=== PATIENT | female | born 1960 | race Caucasian/White ===

== ENCOUNTER → 2024-04-05 | Outpatient (CLI) | payer OTHER ==
[~2024-04-05] MED LIST: ALBU2.5V5; ALPR1 PO; BACL10; BISA5EC PO; CYCL10; CYCL10 PO; DIAZ5 PO; ESCI20 PO; FAMO40; FLUT.05NI; GABA400 PO; GABA600 PO; HYDACE10B PO; HYOMAX; LEVSOD50 PO; LIDO5TP TOP; LISI20; MAXALT PO; NAPR500 PO; NORT25 PO; OXYB5; OXYC15ER PO; OXYC5 PO; RIZA10MLT MM; VITAMIN D; vicodin PO
[2024-04-05 19:44] LABS: Candida Group, PCR NOT DETECTED (NOT DETECT); Candida glabrata-krusei, PCR NOT DETECTED (NOT DETECT)
[2024-04-05 19:47] LABS: Bacterial Vaginosis PCR Positive (NEGATIVE)
== END ==
LOC: LAB SHORT 16:45 → LAB 16:45
PROVIDERS: General Practice
DX: N89.8 Other specified noninflammatory disorders of vagina (principal)
CPT/HCPCS: 87481; 87661; 87801

== ENCOUNTER → 2024-07-03 | Outpatient (CLI) | payer OTHER | END | disposition home or self-care (01) | LOC: LAB 18:23 → LAB SHORT 18:23 | DX: N30.00 Acute cystitis without hematuria (principal) | CPT/HCPCS: 87077; 87086; 87186 ==